=== PATIENT | male | born 2000 | race Caucasian/White ===

== ENCOUNTER 2023-12-16 02:27 | Emergency (ER) | payer OTHER ==
[2023-12-16 02:35] VITALS: BP 132/84; PULSE 90; RESP 20; TEMP 98.4; BMI 26.2
[2023-12-16] MEDS ORDERED: LIDOCAINE VISCOUS 2% ORAL/TOP 15 ML UNIT-DOSE CUP ONE (03:00)
[2023-12-16] MEDS ORDERED: ACETAMINOPHEN 325 MG TABLET (FP) ONE (03:00)
[2023-12-16] MEDS ORDERED: MAG HYDROX/AL HYDROX/SIMETH 30 ML UNIT-DOSE CUP ONE (03:00)
[2023-12-16] MEDS ORDERED: FAMOTIDINE 20 MG TABLET ONE (03:00)
[2023-12-16] MEDS: MAG HYDROX/AL HYDROX/SIMETH 30 ML UNIT-DOSE CUP PO ONE (03:03)
[2023-12-16] MEDS: ACETAMINOPHEN 500 MG TABLET (FP) PO ONE (03:03)
[2023-12-16] MEDS: FAMOTIDINE 20 MG TABLET PO ONE (03:03)
[2023-12-16] MEDS: LIDOCAINE VISCOUS 2% ORAL/TOP 15 ML UNIT-DOSE CUP MM ONE (03:03)
== END 2023-12-16 05:04 | disposition home or self-care (01) ==
LOC: JER 02:27
DX: K21.9 Gastro-esophageal reflux disease without esophagitis (principal); R10.13 Epigastric pain; R19.7 Diarrhea, unspecified
CPT/HCPCS: 82962; 99283-25